=== PATIENT | female | born 1945 | race Caucasian/White ===

== ENCOUNTER 2022-10-04 09:35 | Outpatient (CLI) | payer MEDICARE, OTHER ==
[2022-10-04] MEDS ORDERED: Iopamidol 370 76% 100 ML VIAL ONE (10:37)
== END 2022-10-04 09:36 | disposition home or self-care (01) ==
LOC: CT 09:35
PROVIDERS: ATTEND Internal Medicine Cardiovascular Disease
DX: G45.8 Other transient cerebral ischemic attacks and related syndromes (principal); I70.8 Atherosclerosis of other arteries
CPT/HCPCS: 70498; 82565; Q9967

== ENCOUNTER 2024-05-18 09:25 | Outpatient (CLI) | payer MEDICARE, OTHER ==
[2024-05-18] MEDS ORDERED: Iopamidol 370 76% 100 ML VIAL ONE (12:11)
== END 2024-05-18 09:26 | disposition home or self-care (01) ==
LOC: CT 09:25
PROVIDERS: ATTEND Thoracic Surgery (Cardiothoracic Vascular Surgery)
DX: I70.208 Unspecified atherosclerosis of native arteries of extremities, other extremity (principal)
CPT/HCPCS: 71275; 82565

== ENCOUNTER 2024-05-25 10:34 | Outpatient (CLI) | payer MEDICARE, OTHER | END 2024-05-25 10:35 | disposition home or self-care (01) | LOC: LABBT 10:34 | PROVIDERS: ATTEND Thoracic Surgery (Cardiothoracic Vascular Surgery) | DX: Z01.818 Encounter for other preprocedural examination (principal); I77.1 Stricture of artery | CPT/HCPCS: 80053; 80061; 81003; 82043; 82306; 83036; 85025; 93005; 93010 ==

== ENCOUNTER 2024-05-30 05:48 | Day surgery (SDC) | payer MEDICARE, OTHER ==
[2024-05-25 11:58] VITALS: BMI 30.2
[2024-05-30] MEDS ORDERED: Heparin 10,000 UNITS/ 10 ML VIAL ONE (06:19)
[2024-05-30] MEDS ORDERED: fentaNYL 50 mcg/mL 1 mL Vial ONE (06:45)
[2024-05-30] MEDS ORDERED: Midazolam HCl 2 mg/2 ml Vial ONE (06:45)
[2024-05-30] MEDS ORDERED: Nitroglycerin 50 MG/250 ML BOT 250 ML ONE (07:00)
[2024-05-30] MEDS ORDERED: Verapamil 5 MG/2 ML VIAL ONE (07:00)
[2024-05-30] MEDS ORDERED: Protamine Sulfate 50 MG/5 ML VIAL ONE (07:56)
== END 2024-05-30 12:11 | disposition home or self-care (01) ==
LOC: SDC 05:48
PROVIDERS: ATTEND Thoracic Surgery (Cardiothoracic Vascular Surgery)
PROC: 03780ZZ Dilation of Left Brachial Artery, Open Approach (ICD-10-PCS; principal; 2024-05-30)
PROC: 03H Upper Arteries, Insertion (ICD-10-PCS; 2024-05-30)
DX: I77.1 Stricture of artery (principal); I10 Essential (primary) hypertension; K21.9 Gastro-esophageal reflux disease without esophagitis; M19.90 Unspecified osteoarthritis, unspecified site; Z90.49 Acquired absence of other specified parts of digestive tract; Z79.899 Other long term (current) drug therapy; Z91.013 Allergy to seafood; Z91.030 Bee allergy status
CPT/HCPCS: 36215; 37236; 85347; C1725 ×2; C1769 ×4; C1876; C1887 ×2; C1894; J1644; J2250; J2720; J3010; 36216; 75710

== ENCOUNTER 2025-08-26 09:20 | Outpatient (CLI) | payer MEDICARE | END 2025-08-26 09:21 | disposition home or self-care (01) | LOC: SCSMRI 09:20 | PROVIDERS: ATTEND Orthopaedic Surgery | DX: M24.811 Other specific joint derangements of right shoulder, not elsewhere classified (principal); M75.121 Complete rotator cuff tear or rupture of right shoulder, not specified as traumatic; M75.51 Bursitis of right shoulder ==